=== PATIENT | female | born 1995 | race Caucasian/White ===

== ENCOUNTER 2019-12-01 00:16 | Emergency (ER) | payer MEDICAID ==
[~2019-12-01] VITALS: Ht 154.9 cm; Wt 44.5 kg
[2019-12-01] MEDS ORDERED: ZOFRAN ODT4 MG PO (00:53)
[2019-12-01 01:40] VITALS: BP 119/66; PULSE 69; TEMP 98.9
== END 2019-12-01 01:41 | disposition home or self-care (01) ==
LOC: COL.ER 00:16
DX: R11.10 Vomiting, unspecified (principal)
CPT/HCPCS: J2550